=== PATIENT | female | born 1975 | race African-American/Black ===

== ENCOUNTER 2020-03-29 05:22 | Day surgery (SDC) | payer OTHER ==
[2020-03-27 17:52] VITALS: BMI 30.2
[2020-03-29] MEDS ORDERED: PROPOFOL 20 ML ONE ×3 (08:02)
[2020-03-29] MEDS ORDERED: MIDAZOLAM HCL 2 MG/2 ML SINGLE DOSE VIAL ONE (08:03)
[2020-03-29] MEDS ORDERED: SUCCINYLCHOLINE CHLORIDE 200 MG/10 ML SYRINGE ONE (08:03)
[2020-03-29] MEDS ORDERED: ONDANSETRON 4 MG/2 ML VIAL IVPUSH PRN ×2 (08:40→08:41)
[2020-03-29] MEDS ORDERED: IBUPROFEN 600 MG TABLET (FP) PO PRN (08:40)
[2020-03-29] MEDS ORDERED: oxyCODONE HCL 5 MG TABLET PO PRN ×2 (08:40→08:41)
[2020-03-29] MEDS ORDERED: IBUPROFEN 800 MG/8 ML IJ IVPB PRN (08:40)
[2020-03-29] MEDS ORDERED: PROMETHAZINE HCL 25 MG/1 ML VIAL IVPUSH PRN (08:41)
[2020-03-29] MEDS ORDERED: ELECTROLYTE-148 SOLN 1,000 ML IV SCH (08:45)
[2020-03-29 10:38] VITALS: BP 118/74; PULSE 82; TEMP 98
== END 2020-03-29 10:34 | disposition home or self-care (01) ==
LOC: JASU-SURG 05:22
PROVIDERS: ATTEND Obstetrics & Gynecology
PROC: 0UJD8ZZ Inspection of Uterus and Cervix, Via Natural or Artificial Opening Endoscopic (ICD-10-PCS; 2020-03-29)
PROC: 0UB97ZX Excision of Uterus, Via Natural or Artificial Opening, Diagnostic (ICD-10-PCS; principal; 2020-03-29 08:00)
PROC: 0UDB7ZX Extraction of Endometrium, Via Natural or Artificial Opening, Diagnostic (ICD-10-PCS; 2020-03-29 08:00)
DX: N92.1 Excessive and frequent menstruation with irregular cycle (principal); N84.0 Polyp of corpus uteri
CPT/HCPCS: 84703; 88305-TC; 94760